=== PATIENT | male | born 1965 | race American Indian/Alaskan Native ===

== ENCOUNTER 2020-07-30 08:31 | Emergency (ER) | payer SELFPAY ==
[2020-07-30 08:38] VITALS: BP 160/90
[2020-07-30] MEDS ORDERED: KETOROLAC 60 MG/2 ML INJ IM ONE (10:02)
[2020-07-30] MEDS ORDERED: predniSONE 20 MG TAB PO ONE (10:02)
--- NOTE | 2020-07-30 10:51 | Emergency Department Report ---
ED Back Pain/Injury HPI - General Chief Complaint: Back Pain/Injury Stated Complaint: BACK/KNEE PAIN Time Seen by Provider: 07/30/20 09:53 Source: patient, EMS Limitations: No Limitations - History of Present Illness Initial Comments: This is a 55-year-old male nontoxic, well nourished in appearance, no acute signs of distress presents to the ED with c/o of acute on chronic lower back pain and bilateral knee pains x4 months. Patient was told that he had degenerative arthritis to both knees. Patient stated that the past 2 days he was moving and developed this pain. Patient states has history of sciatica nerve pain which is similar symptoms as today. Patient states that pain radiates through to his bilateral lower extremity. Patient denies any trauma. Denies any bladder or bowel instability. Patient denies any urinary symptoms. Denies any fever, chills, nausea, vomiting, headache, stiff neck, chest pain or shortness of breath. Patient denies any numbness or tingling. Denies any allergies. Patient stated he is also out of his Norvasc 10 mg that he takes daily for hypertension. Patient is requesting for medication refill. MD Complaint: back pain -: month(s) Similar Symptoms Previously: Yes Radiation: none Severity: mild Severity scale (0 -10): 3 Quality: aching Consistency: intermittent Improves With: immobilization, sitting upright Worsens With: movement, walking Context: while lifting, turning/twisting Associated Symptoms: denies other symptoms. denies: confusion, weakness, chest pain, numbness, difficulty walking, cough, difficulty urinating, diaphoresis, incontinence, fever/chills, constipation, headaches, abdominal pain, loss of appetite, malaise, nausea/vomiting, rash, seizure, shortness of breath, syncope - Related Data Home Medications Medication Instructions Recorded Confirmed Last Taken Albuterol Mdi (or & Nicu Only) 2 puff IH BID PRN 08/05/13 12/26/17 Unknown [ProAir HFA Inhaler] Previous Rx's Medication Instructions Recorded Last Taken Type Metoclopramide [Reglan TAB] 10 mg PO Q6H PRN #60 tablet 12/28/17 Unknown Rx amLODIPine 5 mg PO DAILY #30 12/28/17 Unknown Rx traMADoL [Ultram 50 MG tab] 50 mg PO Q6HR PRN #14 tablet 12/28/17 Unknown Rx Cyclobenzaprine [Flexeril] 10 mg PO QHS PRN #10 tablet 07/30/20 Unknown Rx Naproxen 500 mg PO Q12H PRN #12 tablet 07/30/20 Unknown Rx amLODIPine 10 mg PO DAILY #30 tablet 07/30/20 Unknown Rx Allergies Allergy/AdvReac Type Severity Reaction Status Date / Time No Known Allergies Allergy Unverified 08/05/13 13:36 ED Review of Systems ROS: Stated complaint: BACK/KNEE PAIN Other details as noted in HPI Constitutional: denies: chills, fever Eyes: denies: eye pain, eye discharge, vision change ENT: denies: ear pain, throat pain Respiratory: denies: cough, shortness of breath, wheezing Cardiovascular: denies: chest pain, palpitations Endocrine: no symptoms reported Gastrointestinal: denies: abdominal pain, nausea, diarrhea Genitourinary: denies: urgency, dysuria Musculoskeletal: back pain. denies: joint swelling, arthralgia Skin: denies: rash, lesions Neurological: denies: headache, weakness, paresthesias Psychiatric: denies: anxiety, depression Hematological/Lymphatic: denies: easy bleeding, easy bruising ED Past Medical Hx - Past Medical History Previous Medical History?: Yes Hx Hypertension: Yes Hx GERD: Yes Hx Asthma: Yes - Surgical History Past Surgical History?: Yes Additional Surgical History: Left knee ligament repair - Social History Smoking Status: Current Every Day Smoker Substance Use Type: None - Medications Home Medications: Home Medications Medication Instructions Recorded Confirmed Last Taken Type Albuterol Mdi (or & Nicu Only) 2 puff IH BID PRN 08/05/13 12/26/17 Unknown History [ProAir HFA Inhaler] Metoclopramide [Reglan TAB] 10 mg PO Q6H PRN #60 tablet 12/28/17 Unknown Rx amLODIPine 5 mg PO DAILY #30 12/28/17 Unknown Rx traMADoL [Ultram 50 MG tab] 50 mg PO Q6HR PRN #14 tablet 12/28/17 Unknown Rx Cyclobenzaprine [Flexeril] 10 mg PO QHS PRN #10 tablet 07/30/20 Unknown Rx Naproxen 500 mg PO Q12H PRN #12 tablet 07/30/20 Unknown Rx amLODIPine 10 mg PO DAILY #30 tablet 07/30/20 Unknown Rx ED Physical Exam - General Limitations: No Limitations General appearance: alert, in no apparent distress - Head Head exam: Present: atraumatic, normocephalic - Eye Eye exam: Present: normal appearance - Neck Neck exam: Present: normal inspection, full ROM. Absent: tenderness, meningismus, lymphadenopathy - Respiratory Respiratory exam: Absent: respiratory distress - Cardiovascular Cardiovascular Exam: Present: regular rate - Extremities Exam Extremities exam: Present: normal inspection, full ROM, normal capillary refill. Absent: tenderness, joint swelling, calf tenderness - Back Exam Back exam: Present: normal inspection, full ROM, paraspinal tenderness (lumbar paraspinal). Absent: tenderness, CVA tenderness (R), CVA tenderness (L), muscle spasm, vertebral tenderness, rash noted - Neurological Exam Neurological exam: Present: alert, oriented X3, normal gait - Psychiatric Psychiatric exam: Present: normal affect, normal mood - Skin Skin exam: Present: warm, dry, intact, normal color. Absent: rash ED Course Vital Signs 07/30/20 07/30/20 08:36 10:28 Temperature 98.3 F Pulse Rate 86 Respiratory 18 16 Rate Blood Pressure 160/90 O2 Sat by Pulse 97 Oximetry - Reevaluation(s) Reevaluation #1: 07/30/20 10:56 Patient is speaking in full sentences with no signs of distress noted. ED Medical Decision Making - Medical Decision Making This is a 55-year-old male that presents with low back strain and chronic back pain. Patient is stable was examined by me. There is no spinal tenderness. There is no cauda equina syndrome during examination. Exam does not show any joint cellulitis or septic joint of bilateral knees. No bladder or bowel instability. Patient received Toradol 60 mg IM and prednisone in the ED which preceded his symptoms has resolved and subsided. Patient is discharged with muscle relaxant and Motrin. Patient was instructed not to operate any machinery while taking muscle relaxant as they cause her drowsiness. Patient was referred to Follow-up with a primary care doctor in 3-5 days or if symptoms worsen and continue return to emergency room as soon as possible. At time of discharge, the patient does not seem toxic or ill in appearance. No acute signs of distress noted. Patient agrees to discharge treatment plan of care. No further questions noted by the patient. According to ACEP: (1) in ED patients with asymptomatic markedly elevated blood pressure, routine screening for acute target organ injury (eg, serum creatinine, urinalysis, ECG) is not required. (1) In patients with asymptomatic markedly elevated blood pressure, routine ED medical intervention is not required. This chart is dictated with using [employer] Dictation [employer] Critical care attestation.: If time is entered above; I have spent that time in minutes in the direct care of this critically ill patient, excluding procedure time. ED Disposition Clinical Impression: Medication refill Low back strain Qualifiers: Encounter type: initial encounter Qualified Code(s): S39.012A - Strain of muscle, fascia and tendon of lower back, initial encounter Chronic knee pain Qualifiers: Laterality: bilateral Qualified Code(s): M25.561 - Pain in right knee; M25.562 - Pain in left knee; G89.29 - Other chronic pain Disposition: TO HOME OR SELFCARE Is pt being admited?: No Does the pt Need Aspirin: No Condition: Stable Instructions: Muscle Strain (ED), Cyclobenzaprine (By mouth) Additional Instructions: Follow-up with your primary care doctor in 3-5 days or if symptoms worsen such as bladder or bowel stability, chest pain, short of breath, numbness or tingling sensation in extremities, headache, dizziness, visual changes, nausea vomiting, or abdominal pain, return back to emergency room as was possible. Take naproxen and Flexeril as prescribed. Do not operate heavy machinery while taking Flexeril due to sedation Prescriptions: Cyclobenzaprine [Flexeril] 10 mg PO QHS PRN #10 tablet PRN Reason: Muscle Spasm amLODIPine 10 mg PO DAILY #30 tablet Naproxen 500 mg PO Q12H PRN #12 tablet PRN Reason: Pain , Severe (7-10) Referrals: PRIMARY CAREMD [Primary Care Provider] - 3-5 Days CHANEL CONWAY MD [Staff Physician] - 3-5 Days RAQUEL ESCOBEDO MD [Staff Physician] - 3-5 Days
== END 2020-07-30 11:11 | disposition home or self-care (01) ==
LOC: ED 08:31
DX: S39.012A Strain of muscle, fascia and tendon of lower back, initial encounter (principal); G89.29 Other chronic pain; M25.561 Pain in right knee; M25.562 Pain in left knee; I10 Essential (primary) hypertension; K21.9 Gastro-esophageal reflux disease without esophagitis; J45.909 Unspecified asthma, uncomplicated; F17.200 Nicotine dependence, unspecified, uncomplicated; Z98.890 Other specified postprocedural states; Z76.0 Encounter for issue of repeat prescription; Z79.899 Other long term (current) drug therapy
CPT/HCPCS: 96372; 99283; J1885; J7512

== ENCOUNTER 2020-08-12 13:26 | Emergency (ER) | payer SELFPAY ==
[2020-08-12 13:41] VITALS: BP 168/78
[2020-08-12] MEDS ORDERED: LIDOCAINE (1%) 10 MG/1 ML VIAL 20 ML MDV INFILTRATI ONE (15:09)
[2020-08-12] MEDS ORDERED: IBUPROFEN 800 MG TAB PO ONE (15:38)
--- NOTE | 2020-08-12 15:42 | Emergency Department Report ---
ED General Adult HPI - General Chief complaint: Extremity Injury, Upper Stated complaint: RT PINKY SWELLING/PAIN Time Seen by Provider: 08/12/20 14:40 Source: patient Mode of arrival: Ambulatory Limitations: No Limitations - History of Present Illness Initial comments: Patient states 1 week ago he assisted a friend with unloading a trailer. He is uncertain what caused his finger to be swollen he does not remember any trauma patient states he may have been bitten by insect. Patient has full range of motion of his right pinky finger there is moderate amount of swelling with pus pocket -: week(s) (1) Location: right (5th finger) Radiation: non-radiation Quality: aching Consistency: constant Worsens with: none Associated Symptoms: denies other symptoms. denies: chest pain, cough, loss of appetite, malaise, nausea/vomiting Treatments Prior to Arrival: none - Related Data Home Medications Medication Instructions Recorded Confirmed Last Taken Albuterol Mdi (or & Nicu Only) 2 puff IH BID PRN 08/05/13 12/26/17 Unknown [ProAir HFA Inhaler] Previous Rx's Medication Instructions Recorded Last Taken Type Metoclopramide [Reglan TAB] 10 mg PO Q6H PRN #60 tablet 12/28/17 Unknown Rx amLODIPine 5 mg PO DAILY #30 12/28/17 Unknown Rx traMADoL [Ultram 50 MG tab] 50 mg PO Q6HR PRN #14 tablet 12/28/17 Unknown Rx Cyclobenzaprine [Flexeril] 10 mg PO QHS PRN #10 tablet 07/30/20 Unknown Rx Naproxen 500 mg PO Q12H PRN #12 tablet 07/30/20 Unknown Rx amLODIPine 10 mg PO DAILY #30 tablet 07/30/20 Unknown Rx Ibuprofen [Motrin] 600 mg PO Q8H PRN #21 tablet 08/12/20 Unknown Rx cephALEXin [Keflex] 500 mg PO Q8HR 10 Days #30 cap 08/12/20 Unknown Rx Allergies Allergy/AdvReac Type Severity Reaction Status Date / Time No Known Allergies Allergy Unverified 08/05/13 13:36 ED Review of Systems ROS: Stated complaint: RT PINKY SWELLING/PAIN Other details as noted in HPI Comment: All other systems reviewed and negative Constitutional: denies: chills, fever, malaise ENT: denies: ear pain, throat pain, hearing loss Cardiovascular: denies: chest pain, palpitations, dyspnea on exertion, orth opnea, edema, syncope Gastrointestinal: denies: abdominal pain Genitourinary: denies: dysuria Neurological: denies: headache ED Past Medical Hx - Past Medical History Previous Medical History?: Yes Hx Hypertension: Yes Hx GERD: Yes Hx Asthma: Yes - Surgical History Past Surgical History?: Yes Additional Surgical History: Left knee ligament repair - Social History Smoking Status: Current Every Day Smoker - Medications Home Medications: Home Medications Medication Instructions Recorded Confirmed Last Taken Type Albuterol Mdi (or & Nicu Only) 2 puff IH BID PRN 08/05/13 12/26/17 Unknown History [ProAir HFA Inhaler] Metoclopramide [Reglan TAB] 10 mg PO Q6H PRN #60 tablet 12/28/17 Unknown Rx amLODIPine 5 mg PO DAILY #30 12/28/17 Unknown Rx traMADoL [Ultram 50 MG tab] 50 mg PO Q6HR PRN #14 tablet 12/28/17 Unknown Rx Cyclobenzaprine [Flexeril] 10 mg PO QHS PRN #10 tablet 07/30/20 Unknown Rx Naproxen 500 mg PO Q12H PRN #12 tablet 07/30/20 Unknown Rx amLODIPine 10 mg PO DAILY #30 tablet 07/30/20 Unknown Rx Ibuprofen [Motrin] 600 mg PO Q8H PRN #21 tablet 08/12/20 Unknown Rx cephALEXin [Keflex] 500 mg PO Q8HR 10 Days #30 cap 08/12/20 Unknown Rx ED Physical Exam - General Limitations: No Limitations General appearance: alert, in no apparent distress - Head Head exam: Absent: atraumatic - Eye Eye exam: Present: normal appearance - ENT ENT exam: Present: normal exam - Neck Neck exam: Present: normal inspection - Respiratory Respiratory exam: Present: normal lung sounds bilaterally - Cardiovascular Cardiovascular Exam: Present: regular rate, normal heart sounds - Rectal Rectal exam: Absent: deferred - exam: Present: normal inspection - Extremities Exam Extremities exam: Present: other (right 5th finger wiht swelling and collection of pus from medial to distal phalanx. 2 + radial pulse sensation intact full rom of finger) - Back Exam Back exam: Present: normal inspection - Neurological Exam Neurological exam: Present: alert, oriented X3 - Psychiatric Psychiatric exam: Present: normal affect - Skin Skin exam: Present: warm, dry, intact, erythema (right pinky finger) ED Course Vital Signs 08/12/20 13:40 Temperature 98.1 F Pulse Rate 92 H Respiratory 18 Rate Blood Pressure 168/78 O2 Sat by Pulse 98 Oximetry - Reevaluation(s) Reevaluation #1: 08/12/20 15:48 Patient tolerated I&D well - I & D Right Head Type of Procedure: Simple Site: right 5th finger Blade Size: 11 I & D Procedure: betadine prep Progress: Moderate amount of pus expressed patient tolerated well clean dry dressing applied. Wound care instructions given ED Medical Decision Making - Medical Decision Making Right fifth finger paronychia I&D done and tolerated well moderate amount of blood and pus expressed patient tolerated well decrease swelling noted immediately Critical Care Time: No Critical care attestation.: If time is entered above; I have spent that time in minutes in the direct care of this critically ill patient, excluding procedure time. ED Disposition Clinical Impression: Paronychia of finger Qualifiers: Laterality: right Qualified Code(s): L03.011 - Cellulitis of right finger Disposition: DC- TO HOME OR SELFCARE Is pt being admited?: No Does the pt Need Aspirin: No Condition: Stable Instructions: Paronychia, [id number], Fingertip Infection Additional Instructions: Keep finger clean and dry wash daily with soap and water and apply a dry dressi ng dressing follow-up with your primary care doctor in about 3 to 5 days if you develop increased swelling and increased pain fever or chills return to the emergency room immediately take all of the antibiotic as prescribed you can and also take ibuprofen 600 mg as prescribed. For pain Prescriptions: cephALEXin [Keflex] 500 mg PO Q8HR 10 Days #30 cap Ibuprofen [Motrin] 600 mg PO Q8H PRN #21 tablet PRN Reason: Pain Referrals: PRIMARY CAREMD [Primary Care Provider] - 3-5 Days CHANEL CONWAY MD [Staff Physician] - 3-5 Days Time of Disposition: 15:42
== END 2020-08-12 16:27 | disposition home or self-care (01) ==
LOC: ED 13:26
DX: L03.011 Cellulitis of right finger (principal); I10 Essential (primary) hypertension; K21.9 Gastro-esophageal reflux disease without esophagitis; J45.909 Unspecified asthma, uncomplicated; F17.200 Nicotine dependence, unspecified, uncomplicated; Z79.899 Other long term (current) drug therapy; Z98.890 Other specified postprocedural states

== ENCOUNTER 2020-09-18 01:03 | Emergency (ER) | payer SELFPAY | END 2020-09-18 06:30 | LOC: ED 01:03 → EEVIPCON 01:03 → ED 06:30 | DX: M25.561 Pain in right knee (principal); M25.562 Pain in left knee; Z53.21 Procedure and treatment not carried out due to patient leaving prior to being seen by health care provider ==

== ENCOUNTER 2020-10-18 01:22 | Emergency (ER) | payer SELFPAY ==
--- NOTE | 2020-10-18 11:41 | XRay Report ---
CHEST 2 VIEWS INDICATION: SOB. COMPARISON: 12/26/2017 FINDINGS: Support devices: None. Heart: Within normal limits. Lungs/pleura: No acute air space or interstitial disease. No pneumothorax. Additional findings: None. IMPRESSION: No acute findings. Signer Name: Everett Varela Jr, MD Signed: 10/18/2020 11:36 AM Workstation Name: [id number]
--- NOTE | 2020-10-18 11:50 | Emergency Department Report ---
ED General Adult HPI - General Chief complaint: Dyspnea/Respdistress Stated complaint: SOB/LIGHTHEADED Time Seen by Provider: 10/18/20 11:33 Source: patient, EMS Mode of arrival: Ambulatory Limitations: No Limitations - History of Present Illness Initial comments: Patient is 55 years old male with history of hypertension and asthma. Patient presented to the ER complaining of shortness of breath and slight dizziness started last night after he finished working. Patient denied any chest pain. Patient stated that he is out of his blood pressure medicine for the last 2 days. Patient denied any cough, fever or chills. Patient also denied any lower extremity swelling. - Related Data Home Medications Medication Instructions Recorded Confirmed Last Taken Albuterol Mdi (or & Nicu Only) 2 puff IH BID PRN 08/05/13 12/26/17 Unknown [ProAir HFA Inhaler] Previous Rx's Medication Instructions Recorded Last Taken Type Metoclopramide [Reglan TAB] 10 mg PO Q6H PRN #60 tablet 12/28/17 Unknown Rx amLODIPine 5 mg PO DAILY #30 12/28/17 Unknown Rx traMADoL [Ultram 50 MG tab] 50 mg PO Q6HR PRN #14 tablet 12/28/17 Unknown Rx Cyclobenzaprine [Flexeril] 10 mg PO QHS PRN #10 tablet 07/30/20 Unknown Rx Naproxen 500 mg PO Q12H PRN #12 tablet 07/30/20 Unknown Rx amLODIPine 10 mg PO DAILY #30 tablet 07/30/20 Unknown Rx Ibuprofen [Motrin] 600 mg PO Q8H PRN #21 tablet 08/12/20 Unknown Rx cephALEXin [Keflex] 500 mg PO Q8HR 10 Days #30 cap 08/12/20 Unknown Rx Allergies Allergy/AdvReac Type Severity Reaction Status Date / Time No Known Allergies Allergy Unverified 08/05/13 13:36 ED Review of Systems ROS: Stated complaint: SOB/LIGHTHEADED Other details as noted in HPI Comment: All other systems reviewed and negative Constitutional: denies: chills, fever Respiratory: shortness of breath, SOB with exertion, SOB at rest. denies: cough, orthopnea, wheezing Cardiovascular: denies: chest pain, palpitations Gastrointestinal: denies: abdominal pain, nausea, vomiting Musculoskeletal: denies: back pain Neurological: denies: headache, weakness, numbness, paresthesias, confusion, abnormal gait ED Past Medical Hx - Past Medical History Previous Medical History?: Yes Hx Hypertension: Yes Hx GERD: Yes Hx Asthma: Yes - Surgical History Past Surgical History?: Yes Additional Surgical History: Left knee ligament repair - Social History Smoking Status: Never Smoker Substance Use Type: None - Medications Home Medications: Home Medications Medication Instructions Recorded Confirmed Last Taken Type Albuterol Mdi (or & Nicu Only) 2 puff IH BID PRN 08/05/13 12/26/17 Unknown History [ProAir HFA Inhaler] Metoclopramide [Reglan TAB] 10 mg PO Q6H PRN #60 tablet 12/28/17 Unknown Rx amLODIPine 5 mg PO DAILY #30 12/28/17 Unknown Rx traMADoL [Ultram 50 MG tab] 50 mg PO Q6HR PRN #14 tablet 12/28/17 Unknown Rx Cyclobenzaprine [Flexeril] 10 mg PO QHS PRN #10 tablet 07/30/20 Unknown Rx Naproxen 500 mg PO Q12H PRN #12 tablet 07/30/20 Unknown Rx amLODIPine 10 mg PO DAILY #30 tablet 07/30/20 Unknown Rx Ibuprofen [Motrin] 600 mg PO Q8H PRN #21 tablet 08/12/20 Unknown Rx cephALEXin [Keflex] 500 mg PO Q8HR 10 Days #30 cap 08/12/20 Unknown Rx ED Physical Exam - General Limitations: No Limitations General appearance: alert, in no apparent distress - Head Head exam: Present: atraumatic, normocephalic, normal inspection - Eye Eye exam: Present: normal appearance - ENT ENT exam: Present: normal exam, normal orophraynx, mucous membranes moist - Neck Neck exam: Present: normal inspection, full ROM. Absent: tenderness, me ningismus, lymphadenopathy, thyromegaly - Respiratory Respiratory exam: Present: normal lung sounds bilaterally - Cardiovascular Cardiovascular Exam: Present: regular rate, normal rhythm, normal heart sounds - GI/Abdominal GI/Abdominal exam: Present: soft, normal bowel sounds. Absent: distended, tenderness, guarding, rebound, rigid, organomegaly, mass, bruit, pulsatile mass, hernia - Extremities Exam Extremities exam: Present: normal inspection, full ROM, normal capillary refill. Absent: tenderness, pedal edema, joint swelling, calf tenderness - Back Exam Back exam: Present: normal inspection, full ROM. Absent: CVA tenderness (R), CVA tenderness (L) - Neurological Exam Neurological exam: Present: alert, oriented X3, CN II-XII intact - Psychiatric Psychiatric exam: Present: normal mood - Skin Skin exam: Present: warm, intact, normal color ED Course Vital Signs 10/18/20 02:57 Temperature 98.1 F Pulse Rate 88 Respiratory 16 Rate Blood Pressure 148/102 O2 Sat by Pulse 96 Oximetry ED Medical Decision Making - Lab Data Result diagrams: 10/18/20 12:16 10/18/20 12:16 - EKG Data -: EKG Interpreted by Pr EKG shows normal: sinus rhythm Rate: normal - EKG Data Interpretation: no acute changes - Radiology Data Radiology results: report reviewed - Medical Decision Making Patient is 55 years old male with history of hypertension and asthma. Patient presented to the ER complaining of shortness of breath and slight dizziness started last night after he finished working. Patient denied any chest pain. Patient stated that he is out of his blood pressure medicine for the last 2 days. Patient denied any cough, fever or chills. Patient also denied any lower extremity swelling. EKG is unremarkable. Chest x-ray is negative for acute finding. Troponin is negative. Patient blood pressure improved. Patient stated that he does not have any symptoms. I believe patient symptoms is most likely related to his elevated blood pressure however patient strongly advised to follow-up with his primary care physician for outpatient cardiac work-up and also advised to return to the emergency room if his symptoms get worse or if he develop any new symptoms. Patient also given prescription for Norvasc and hydrochlorothiazide. Critical care attestation.: If time is entered above; I have spent that time in minutes in the direct care of this critically ill patient, excluding procedure time. ED Disposition Clinical Impression: Chest pain, Malignant hypertension Disposition: DC-01 TO HOME OR SELFCARE Is pt being admited?: No Condition: Stable Instructions: Chest Pain (ED), Nonspecific Chest Pain, Adult, Hypertension (ED) Referrals: PRIMARY CARE,MD [Primary Care Provider] - 3-5 Days
[2020-10-18 12:46] LABS: Basophils # (Auto) 0.1 K/mm3 (0.0-0.1); Basophils % (Auto) 0.9 % (0.0-1.8); Eosinophils # (Auto) 0.2 K/mm3 (0.0-0.4); Eosinophils % (Auto) 2.7 % (0.0-4.3); Hemoglobin 14.7 gm/dl (11.8-15.2); Lymphocytes # (Auto) 1.9 K/mm3 (1.2-5.4); Mean Corpuscular HGB Conc 34 % (32-34); Mean Corpuscular Volume 89 fl (84-94); Monocytes # (Auto) 0.5 K/mm3 (0.0-0.8); Monocytes % (Auto) 5.5 % (0.0-7.3); Platelet Count 311 K/mm3 (140-440); Red Blood Count 4.82 M/mm3 (3.65-5.03)
[2020-10-18 13:10] LABS: Alanine Aminotransferase 23 units/L (7-56); Albumin 4.1 g/dL (3.9-5); BUN/Creatinine Ratio 12; Blood Urea Nitrogen 18 mg/dL (9-20); Calcium 9.7 mg/dL (8.4-10.2); Hemolysis Index 5
[2020-10-18 13:13] LABS: Bilirubin,Direct < 0.2 mg/dL (0-0.2)
[2020-10-18 13:49] VITALS: BP 154/94
== END 2020-10-18 14:11 | disposition home or self-care (01) ==
LOC: ED 01:22
DX: I10 Essential (primary) hypertension (principal); R07.9 Chest pain, unspecified; K21.9 Gastro-esophageal reflux disease without esophagitis; J45.909 Unspecified asthma, uncomplicated; Z79.899 Other long term (current) drug therapy; Z98.890 Other specified postprocedural states
CPT/HCPCS: 36415; 71046; 80048; 80076; 83880; 84484; 85025; 93005